=== PATIENT | female | born 1975 | race Caucasian/White ===

== ENCOUNTER 2024-05-20 00:02 | Emergency (ER) | payer SELFPAY ==
--- NOTE | ~2024-05-20 | XR_ITS ---
EXAMINATION: XR chest 1V portable DATE: 05/20/2024 04:48 INDICATION: Cough and shortness of breath TECHNIQUE: frontal view of the chest was obtained. COMPARISON: None FINDINGS: The lungs are clear with no focal airspace opacities, pulmonary edema, pleural effusion or pneumothor ax. The cardiomediastinal silhouette is normal. Moderate thoracic spondylosis. IMPRESSION: 1. No acute cardiopulmonary disease. Reviewed, dictated and finalized at location A. MACIST ASSISTANT
--- OUTSIDE RECORDS SUMMARY | 2024-05-20 00:05 | XMS_ITS ---
Author Organization [facility] inic Address [id number] [place] [address] [place] [id number] Care Team Providers Care Supervisor Tank House Name Role Phone GAB SOUZA Primary Care Provider [phone] REASON FOR VISIT med issues MEDICATIONS Medication SIG (Take, Route, Frequency, Duration) Notes Start Date End Date Status amLODIPine Besylate 5 MG Take 1 tablet b y mouth once daily for 30 days Active Doxepin HCl 75 MG 1 tablet at bedtime Orally Once a day for 30 days Active Atorvastatin Calcium 80 MG 1 tablet Oral ly Once a day for 30 day(s) Active Encounters Encounter Location Date Provider Diagnosis [facility] [address] [facility] [address] [place] [id number] 03/04/2023 GAB SOUZA Medication refill Z76.0 ASSESSMENTS Encounter Date Diagnosis Assessment Notes Treatment Notes Treatment Clinical Notes 03/04/2023 Medication refill (ICD-10 - Z76.0) PLAN OF TREATMENT Medication Medication Name Sig Start Date Stop Date Notes amLODIPine Besylate 5 MG Take 1 tablet b y mouth once daily for 30 days Doxepin HCl 75 MG 1 tablet at bedtime Orally Once a day for 30 days Atorvastatin Calcium 80 MG 1 tablet Oral ly Once a day for 30 day(s)
--- OUTSIDE RECORDS SUMMARY | 2024-05-20 00:06 | XMS_ITS ---
Author Organization [facility] inic Address [address] [facility] [address] [place], [place] [phone] Care Team Providers Care Prism Measurer Name Role Phone GAB SOUZA Primary Care Provider Alberta Salguero Unavailable [phone] REASON FOR VISIT 1 month f/u Encounters Encounter Location Date Provider Diagnosis [facility] [address] [facility] [address] [place], [place] [phone] 04/01/2023 Alberta Salguero PLAN OF TREATMENT No Information
--- OUTSIDE RECORDS SUMMARY | 2024-05-20 00:06 | XMS_ITS ---
Author Organization [facility] inic Address [address] [facility] [address] [place], [place] [phone] Care Team Providers Care Water Safety Teacher Name Role Phone GAB SOUZA Primary Care Provider Merly Arvizu [phone] REASON FOR VISIT Preparation for 04/01/2023 follow-up appointment Encounters Encounter Location Date Provider Diagnosis [facility] [address] [facility] [address] [place], [place] [phone] 03/30/2023 Merly Arvizu PLAN OF TREATMENT No Information
--- OUTSIDE RECORDS SUMMARY | 2024-05-20 00:06 | XMS_ITS | Referral Summary ---
Author Organization [facility] Address [address] [facility] [place] [address] Care Team Providers Care Unemployment Specialist Name Role Phone Rachael Banda Primary Care Provider [phone] Rachael Banda Unavailable Source Comments [facility],non-owned Affiliates and Associated Physician Practices is amultiple site organization consisting of ambulatory clinics and hospital sitesin [place], [place], [place] and [place]. This disclosure is being madepursuant to the Care Everywhere program and may not contain all information available regarding this patient. Last updated 17.[facility] Allergies Active Allergy Reactions Criticality Noted Date Comments Prednisone Unknown 08/10/2017 Medications * Be aware that medications may not be up to date on this document. Alwaysverify current medications with the patient. Medication Sig Dispensed Refills Start Date End Date Status cyclobenzaprine (FLEXERIL) 10 MG tablet 04/05/2017 A ctive cetirizine (ALL DAY ALLERGY) 10 MG tablet 02/24/2017 Act robert FLUoxetine (PROZAC) 20 MG capsule 04/01/2017 Active montelukast (SINGULAIR) 10 MG tablet 04/19/2017 Active gabapentin (NEURONTIN) 300 MG capsule 04/01/2017 Active OXCARBAZEPINE PO Active clonazePAM (KLONOPIN) 0.5 MG tablet Take 0.5 mg by mouth 2 times daily Active TRUEPLUS LANCETS 30G MISC 10/31/2018 Active amLODIPine (NORVASC) 5 MG tablet 10/31/2018 Active cloNIDine (CATAPRES) 0.1 MG tablet Take 0.1 mg by mouth 02/13/2019 Active lithium CR (ESKALITH CR) 450 MG tablet 05/24/2019 Active Active Problems No known active problems Social History Tobacco Use Types Packs/Day Years Used Date Smoking Tobacco: Never Smokeless Tobacco: Never Sex and Gender Information Value Date Recorded Sex Assigned at Not on file Gender Identity Not on file Sexual Orientation Not on file Last Filed Vital Signs Vital Sign Reading Time Taken Comments Blood Pressure - - Pulse - - Temperature - - Respiratory Rate - - Oxygen Saturation - - Inhaled Oxygen Concentration - - Weight 92.1 kg (203 lb) 12/27/2019 1:54 PM CDT Height 165.1 cm (5' 5 ) 12/27/2019 1:54 PM CDT Body Mass Index 33.78 12/27/2019 1:54 PM CDT Plan of Treatment Not on file Advance Directives Documents on File Type Date Recorded Patient Biometrics Consultant Expl anation Adv Directive/Living Will/POA 06/07/2019 11:34 AM [facility] Care Teams Unemployment Specialist Relationship Specialty Start Date End Date Rachael Banda PA [address] [place] [address] PCP - General 09/02/18 Rachael Banda PA [address] [place] [phone] 09/02/18
--- OUTSIDE RECORDS SUMMARY | 2024-05-20 00:06 | XMS_ITS | Patient Health Summary ---
Author Organization [facility] Address [address] [facility] [place] [address] Care Team Providers Care Magnetic Tape Winder Name Role Phone Rachael Banda Primary Care Provider [phone] Rachael Banda Unavailable Note from [facility],non-owned Affiliates and Associated Physician Practices is amultiple site organization consisting of ambulatory clinics and hospital sitesin [place], [place], [place] and [place]. This disclosure is being madepursuant to the Care Everywhere program and may not contain all information available regarding this patient. Last updated 17.[facility] Allergies * Prednisone(Unknown) Medications * Be aware that medications may not be up to date on this document. Alwaysverify current medications with the patient. * cyclobenzaprine (FLEXERIL) 10 MG tablet(Started 04/05/2017) * cetirizine (ALL DAY ALLERGY) 10 MG tablet(Started 02/24/2017) * FLUoxetine (PROZAC) 20 MG capsule(Started 04/01/2017) * montelukast (SINGULAIR) 10 MG tablet(Started 04/19/2017) * gabapentin (NEURONTIN) 300 MG capsule(Started 04/01/2017) * OXCARBAZEPINE PO * clonazePAM (KLONOPIN) 0.5 MG tablet Take 0.5 mg by mouth 2 times daily * TRUEPLUS LANCETS 30G MISC(Started 10/31/2018) * amLODIPine (NORVASC) 5 MG tablet(Started 10/31/2018) * cloNIDine (CATAPRES) 0.1 MG tablet(Started 02/13/2019) Take 0.1 mg by mouth * lithium CR (ESKALITH CR) 450 MG tablet(Started 05/24/2019) Active Problems No known active problems Social [...] Mass Index 33.78 12/27/2019 1:54 PM CDT Procedures * XR SPINE ENTIRE 2 OR 3VW(Performed 06/05/2019) Performed for Chronic midline low back pain with bilateral sciatica * XR LUMBAR SPINE 2 OR 3VW(Performed 04/27/2017) Results * XR SPINE ENTIRE 2 OR 3VW (06/05/2019 1:08 PM CDT) Anatomical Region Laterality Modality Spine Radiographic Yola ging 06/05/2019 1:45 PM CDT Impressions 06/05/2019 1:48 PM CDT IMPRESSION: Instrumented spinal fusion at L4-5. This report was electronically signed by DANDRE ROJAS MD on 06/05/2019 1:48 PM . Narrative 06/05/2019 1:48 PM CDT Exam: XR SPINE ENTIRE 2 view History: M54.41: Chronic midline low back pain with bilateral sciatica M54.42: Chronic midline low back pain with bilateral sciatica G89.29: Chronic midline low back pain with bilateral sciatica Comparison: None. Findings: Instrumented spinal fusion is present at L4-5 with posterior rods and screws. Instrumentation is intact. There is generally mild multilevel degenerative disc and joint disease with greater disc space narrowing at L5-S1 where it is moderate to severe. On the AP view there is mild thoracolumbar curvature of less than 10 degrees. Procedure Note Dandre Rojas MD - 06/05/2019 Exam: XR SPINE ENTIRE 2 view History: M54.41: Chronic midline low back pain with bilateral sciatica M54.42: Chronic midline low back pain with bilateral sciatica G89.29: Chronic midline low back pain with bilateral sciatica Comparison: None. Findings: Instrumented spinal fusion is present at L4-5 with posterior rods and screws. Instrumentation is intact. There is generally mild multilevel degenerative disc and joint disease with greater disc space narrowing at L5-S1 where it is moderate to severe. On the AP view there is mild thoracolumbar curvature of less than 10 degrees. IMPRESSION: Instrumented spinal fusion at L4-5. This report was electronically signed by DANDRE ROJAS MD on06/05/2019 1:48 PM . Jewel Proctor MD DIAGNOSTIC IMAGING O RDERABLES * XR LUMBAR SPINE 2 OR 3VW (04/27/2017 2:21 PM GAS WELDER APPRENTICE) Anatomical Region Laterality Modality Spine Other Impressions 04/27/2017 2:36 PM GAS WELDER APPRENTICE IMPRESSION: Instrumented spinal fusion at L5-S1. This report was electronically signed by DANDRE ROJAS MD on 04/27/2017 2:36 PM . Narrative 04/27/2017 2:36 PM GAS WELDER APPRENTICE Exam: XR SPINE LUMBAR 2 view History: chronic pain Comparison: None. Findings: Instrumented posterior spinal fusion is present at L5-S1 with posterior vertical rods and pedicle screws. No fracture or subluxation is seen. There is moderate degenerative disc disease at L5-S1 and mild degenerative disc disease at the other levels. There is facet osteoarthritis at L5-S1. Procedure Note Dandre Rojas MD - 06/30/2017 Exam: XR SPINE LUMBAR 2 view History: chronic pain Comparison: None. Findings: Instrumented posterior spinal fusion is present at L5-S1 with posteriorvertical rods and pedicle screws. No fracture or subluxation is seen.There is moderate degenerative disc disease at L5-S1 and mild degenerativedisc disease at the other levels. There is facet osteoarthritis at L5-S1. IMPRESSION IMPRESSION: Instrumented spinal fusion at L5-S1. This report was electronically signed by DANDRE ROJAS MD on 04/27/20172:36 PM . Nancy Darden PA-C DIAGNOSTIC IMAG ING ORDERABLES Care Teams Magnetic Tape Winder Relationship Specialty Start Date End Date Rachael Banda PA [address] [place] [address] PCP - General 09/02/18 Rachael Banda PA [address] [place] [address] 09/02/18
--- OUTSIDE RECORDS SUMMARY | 2024-05-20 00:06 | XMS_ITS | Clinical Summary ---
Author Organization [facility] Address [address] [facility] [address] Care Team Providers Care Association Executive Name Role Phone Rachael Banda Primary Care Provider [phone] Rachael Banda Unavailable Source Comments [facility],non-owned Affiliates and Associated Physician Practices is amultiple site organization consisting of ambulatory clinics and hospital sitesin [place], [place], [place] and [place]. This disclosure is being madepursuant to the Care Everywhere program and may not contain all information available regarding this patient. Last updated 17.[facility] Allergies Active Allergy Reactions Criticality Noted [...] 12/27/2019 1:54 PM CDT Plan of Treatment Health Maintenance Due Date Last Done Comments COLOGUARD (AGES 45-75) - COL ON CA SCREENING 1977 COLON MONITORING 1977 COLONOSCOPY - COLON CA SCREENING 1977 CT COLONOGRAPHY - COLON CA SCREENING 1977 Colorectal Cancer Screening 1977 FIT - COLON CA SCREENING 1977 FLEX SIG - COLON CA SCREENING 1977 LIPID TESTING 1977 MAMMOGRAM 1977 PAP SMEAR 1977 HIV SCREENING 1992 HEPATITIS C SCREENING 11/04/1995 DTAP/TDAP/TD VACCINES (1 - Tdap) 1996 HEPATITIS B VACCINE (1 of 3 - 19+ 3-dose series) 1996 SCREENING FOR DIABETES 11/17/2018 COVID-19 VACCINE ( - 2023-2 5 season) 2023 INFLUENZA VACCINE (#1) 2023 DEPRESSION SCREENING 03/29/2024 ZOSTER VACCINE (1 of 2) 11/09/2027 HIB VACCINE Aged Out No longer eligi ble based on patient's age to complete this topic HPV VACCINE Aged Out No longer eligi ble based on patient's age to complete this topic MENINGOCOCCAL (Group B) VACCINE Aged Out No longer eligible based on patient's age to complete this topic MENINGOCOCCAL VACCINE Aged Out No jeb gisel eligible based on patient's age to complete this topic PNEUMOCOCCAL VACCINE Aged Out No long er eligible based on patient's age to complete this topic Advance Directives Documents on File Type Date Recorded Patient Customer Service Voice Expl anation Adv Directive/Living Will/POA 06/07/2019 11:34 AM [facility] Care Teams Association Executive Relationship Specialty Start Date End Date Rachael Banda PA [address] [place] [phone] PCP - General 09/02/18 Rachael Banda PA [address] [place] [address] 09/02/18
--- OUTSIDE RECORDS SUMMARY | 2024-05-20 00:06 | XMS_ITS ---
Author Organization [facility] Address [address] [facility] [place] [address] Care Team Providers Care Lodging House Keeper Name Role Phone JASON NIX, EHAB Primary Care Provider Unavailabl NUNU Dweitt Unavailable [phone] LUANN ROBIN Unavailable [phone] Encounters Encounter Location Date Provider Diagnosis [facility] [address] [address] 01/15/2023 LUANN ROBIN PLAN OF TREATMENT No Information
[2024-05-20 00:07] VITALS: BP 145/95; PULSE 124; RESP 20; TEMP 36.7; O2SAT 97
--- OUTSIDE RECORDS SUMMARY | 2024-05-20 00:07 | XMS_ITS | Patient Health Record ---
Author Organization [facility] in[facility] Address [address] [facility] [address] [place], [place] [address] Care Team Providers Care Smoke Inspector Name Role Phone GAB SOUZA Primary Care Provider ALLERGIES No Known Allergies REASON FOR REFERRAL No Information MEDICATIONS Medication SIG (Take, Route, Frequency, Duration) Notes Start Date End Date Status amLODIPine Besylate 5 MG Take 1 tablet b y mouth once daily for 30 days Active hydrOXYzine Pamoate 25 MG 1 capsule Oral ly three times a day for itching Active Doxepin HCl 75 MG 1 tablet at bedtime Orally Once a day for 30 days Active Zofran ODT 4 MG 1 tablet on the tongue and allow to dissolve Orally Once a day for 30 day(s) Active busPIRone HCl 15 MG 1 tablet Oral Twice a day Active buPROPion HCl ER (XL) 300 MG Oral for 30 Active Atorvastatin Calcium 80 MG 1 tablet Oral ly Once a day for 30 day(s) Active Cyclobenzaprine HCl 10 MG 1 tablet at be dtime as needed Orally Once a day for 30 day(s) Not-Taking ALPRAZolam 0.25 MG 1 tablet Orally Twic e a day Not-Taking Methocarbamol 500 MG 1 tablet Oral Four times a day as needed Active Cetirizine HCl 10 MG 1 tablet Orally Onc e a day for 30 day(s) Not-Taking traZODone HCl 50 MG 1 tablet at bedtime Oral Once a day Not-Taking cloNIDine HCl 0.1 MG 1 tablet Orally Onc e a day for 30 day(s) Not-Taking OXcarbazepine 150 MG 1 tablet Orally Twi ce a day Active ARIPiprazole 10 MG 1 tablet Orally Once a day for 30 day(s) Active Montelukast Sodium 10 MG 1 tablet Orally Once a day for 30 day(s) Not-Taking Benztropine Mesylate 1 MG 1 tablet Orall y Once a day for 30 day(s) Active Meloxicam 15 MG 1 tablet Orally Once a day for 30 day(s) Not-Taking Gabapentin 600 MG 1 tablet Orally Once a day for 30 day(s) Active FLUoxetine HCl 20 MG 1 capsule Orally On ce a day for 30 day(s) Not-Taking Robaxin 500 MG 1.5 tablets Orally every 4 hrs for 30 day(s) Active SOCIAL HISTORY Tobacco Use: Social History Observation Description Date Details (start date - stop date) Never Smoker NA - NA Sex Assigned At : Social History Observation Description Sex Assigned At Unknown Tobacco Use/Smoking Question Answer Notes Are you a nonsmoker Additional Findings: Tobacco Non-User Aggressive non-smoker Tobacco use other than smoking: Question Answer Notes Are you an other tobacco user? Yes V ape PROBLEMS Problem Type ICD Code Onset Dates Problem Status W/U Status Risk SNOMED Code Notes Problem Essential (primary) hypertension (I10) Active confirmed 31168949 Problem Mood disorder (F39) Active confirmed 86704776 Problem Depression with anxiety (F41.8) Active confirmed 995812803 Problem Bipolar affective disorder, remission status unspecified (F31.9) Active confirmed 13542984 Problem Muscle spasm (M62.838) Active confirmed 56606909 Problem Thyroid nodule (E04.1) Active confirmed Thyroid nodule (620526216) Problem Seasonal allergies (J30.2) Active confirmed 785732680 Problem Chronic insomnia (F51.04) Active confirmed 364623585 Problem Borderline type 2 diabetes mellitus (R73.03) Active confirmed 554403364 Problem Low back pain, unspecified (M54.50) Active confirmed 601736084 PLAN OF TREATMENT Pending Test Test Name Order Date CBC and Plt w Diff 04/22/2022 CMP 04/22/2022 Folic Acid Level 04/22/2022 Hga1c 04/22/2022 Lipid Panel w Direct LDL. 04/22/2022 Magnesium Level 04/22/2022 Microalbumin Urine Random 04/22/2022 TSH 04/22/2022 Vitamin B12 Level 04/22/2022 Vitamin D 25 Hydroxy Level 04/22/2022 US Thyroid 03/03/2023 Insurance Providers Payer Name Payer Address Payer Phone Subscriber Number Group Number Insured Name Patient Relationship to Insured Coverage Start Date Coverage End Date [facility] [address] [address] [place] [address] [phone] [id number] Molly Keene Self - patient is the insured MEDICAL (GENERAL) HISTORY Medical History History ICD Code Biopoloar Depression Hypertension Surgical History Surgery Date(Month/Year) Tubal 1999 Back Lower Lumbar 2004
--- OUTSIDE RECORDS SUMMARY | 2024-05-20 00:07 | XMS_ITS ---
Author Organization [facility] Address [address] [facility] [place] [address] Care Team Providers Care Balling Head Tender Name Role Phone JASON NIX, EHAB Primary Care Provider Unavailabl e NUNU GOMEZ Unavailable [phone] ISIAH SMILEY Unavailable [phone] Encounters Encounter Location Date Provider Diagnosis [facility] [address] [place] [address] 01/29/2023 ISIAH SMILEY PLAN OF TREATMENT No Information
--- OUTSIDE RECORDS SUMMARY | 2024-05-20 00:07 | XMS_ITS | Patient Health Record ---
Author Organization [facility] Address [address] [facility] [place] [address] Care Team Providers Care It Help Desk Technician Name Role Phone JASON NIX, EHAB Primary Care Provider Unavailabl NUNU Dewitt Unavailable [phone] REASON FOR REFERRAL No Information PLAN OF TREATMENT No Information Insurance Providers Payer Name Payer Address Payer Phone Subscriber Number Group Number Insured Name Patient Relationship to Insured Coverage Start Date Coverage End Date [facility] [address] [address] [place] [phone] [id number] Horacio Keene Self - patient is the insured
[2024-05-20 04:30] VITALS: O2SAT 98
[2024-05-20 05:02] VITALS: BP 140/89; PULSE 103; RESP 17; O2SAT 97
[2024-05-20 05:17] LABS: Strep Group A RT-PCR NOT DETECTED (Negative)
[2024-05-20 05:29] LABS: Influenza A QL RT-PCR Positive (Negative); Influenza B QL RT-PCR Negative (Negative); RSV RNA, RT-PCR Negative (Negative); SARS-CoV-2 RNA PCR Negative (Negative)
--- NOTE | 2024-05-20 05:57 | ED.GENADULT ---
HPI - General Adult General Chief complaint: Upper Respiratory Infection Stated complaint: Cough, ST, weak Time Seen by Provider: 05/20/24 05:44 History of Present Illness HPI narrative: Patient is a 48-year-old female who presents to the emergency department this evening complaining of flu-like symptoms for the past 5 days. Patient states that I just feel so awful. Complaining of a sore throat, a productive cough, generalized weakness, body aches. Denies any sick contacts at home or any exposure to sick contacts. Denies any additional symptoms or concerns at this time. Related Data Allergies Allergy/AdvReac Type Severity Reaction Status Date / Time acetaminophen (From Vicodin) AdvReac Intermediate Other Verified 05/20/24 00:10 hydrocodone (From Vicodin) AdvReac Intermediate Other Verified 05/20/24 00:10 prednisone AdvReac Intermediate Other Verified 05/20/24 00:10 Review of Systems Review of Systems: All systems are reviewed and are negative unless stated otherwise in the HPI. Exam Narrative: General: Alert, awake, afebrile, in no acute distress. HEENT: PERRL, no rhinorrhea, no post nasal drip, oropharynx clear. Neck: Trachea midline, no JVD, no lymphadenopathy. Cardiovascular: Tachycardic with regular rhythm, no murmurs, rubs or gallops, no peripheral edema. Respiratory: Clear to auscultation bilaterally, no tachypnea, no wheezing, no rhonchi, no rubs, no respiratory distress. Abdomen: Soft, nontender, nondistended, no rebound, no guarding, no peritoneal signs. Musculoskeletal: No joint swelling or deformity, normal muscle tone. Skin: No rashes or petechia, no signs of infection. Psychiatric: Alert and oriented, normal behavior and judgment for situation. Neurological: Alert and oriented to person, place, and time. Follows all commands. No focal deficits, speech is clear and fluent. Course Vital Signs Vital signs: Vital Signs Temperature 98.0 F 05/20/24 00:07 Pulse Rate 124 H 05/20/24 00:07 Respiratory Rate 20 05/20/24 00:07 Blood Pressure 145/95 H 05/20/24 00:07 Pulse Oximetry 97 05/20/24 00:07 Oxygen Delivery Room Air 05/20/24 00:07 Temperature 98.0 F 05/20/24 00:07 Pulse Rate 103 H 05/20/24 05:02 Respiratory Rate 17 05/20/24 05:02 Blood Pressure 140/89 05/20/24 05:02 Pulse Oximetry 97 05/20/24 05:02 Oxygen Delivery Room Air 05/20/24 04:30 Medical Decision Making MDM Narrative Medical decision making narrative: The patient was evaluated by myself in the emergency department. History is obtained from patient who is an independent historian and physical exam was performed. External medical records were reviewed at this time. Viral swabs were obtained and noted to be positive for influenza A. Patient was administered 200 mg of oral Bentyl made this time to help with her cough. Imaging studies obtained included CXR which was independently interpreted by me revealing no acute cardiopulmonary process, which is pending final radiology interpretation. Differential diagnosis considerations include acute viral syndrome including COVID/RSV/influenza, infectious process such as pneumonia. Comorbidities impacting this visit include none. I have evaluated and discussed social determinants of health with the patient that could potentially impact subsequent diagnosis and treatment plans. On repeat assessment of the patient, reevaluation revealed that the patient is doing well and is in no acute distress. Patient symptoms have remained stable since she arrived to our emergency department. Repeat vital signs were all reviewed and noted to be stable. Differential diagnosis and treatment plan were discussed with the patient at bedside. Patient agrees with discussion and after shared medical decision making agrees with discharge. All questions were answered to the patient's satisfaction. Patient will follow up with her PCP in 3-5 days. A script for Tessalon Perles was sent to patient's pharmacy to use as needed for cough. Patient was provided with strict return precautions and instructed to return to the emergency department if any new or worsening symptoms develop. The patient was discharged in stable condition. Vital Signs Vital Signs: Vital Signs Temperature 98.0 F 05/20/24 00:07 Pulse Rate 124 H 05/20/24 00:07 Respiratory Rate 20 05/20/24 00:07 Blood Pressure 145/95 H 05/20/24 00:07 Pulse Oximetry 97 05/20/24 00:07 Oxygen Delivery Room Air 05/20/24 00:07 Temperature 98.0 F 05/20/24 00:07 Pulse Rate 103 H 05/20/24 05:02 Respiratory Rate 17 05/20/24 05:02 Blood Pressure 140/89 05/20/24 05:02 Pulse Oximetry 97 05/20/24 05:02 Oxygen Delivery Room Air 05/20/24 04:30 Lab Data Labs: Lab Results 05/20/24 Range/Units 04:47 Influenza A (RT-PCR) Positive A (Negative) Influenza B (RT-PCR) Negative (Negative) RSV (RT-PCR) Negative (Negative) SARS-CoV-2 RNA (RT-PCR) Negative (Negative) Group A Strep (PCR) Not detected (Negative) Discharge Plan Discharge Clinical Impression: Influenza Patient Disposition: Home, Self-Care Condition: Improved Instructions: Antibiotic Form, Influenza (ED) Additional Instructions: Please follow-up with your family doctor within the next 3-5 days. Return to the emergency department if any new or worsening symptoms develop. Continue using [id number] medications to help with your symptoms, use Tylenol and or ibuprofen alternating between the 2 for fevers or body aches. Maintain your oral hydration by drinking lots of fluids. Use the prescribed Tessalon Perles as needed for cough. Patient Language: Cook Islander Prescriptions: New benzonatate 200 mg capsule 200 mg PO TID PRN (Reason: cough) Qty: 30 0RF Follow-up/Referrals: PHYSICIAN,MITER GRINDER OPERATOR [Primary Care Provider] - Randall Solis MD [Physician] - 3 Days Time of Disposition: 05:50
--- OUTSIDE RECORDS SUMMARY | 2024-05-20 05:57 | XMS_ITS | Clinical Summary ---
Author Organization [facility] Address [address] [place] [place] [address] Care Team Providers Care Children'S Program Coordinator Name Role Phone Rachael Banda Primary Care Provider [phone] Rachael Banda Unavailable Source Comments [facility],non-owned Affiliates and Associated Physician Practices is amultiple site organization consisting of ambulatory clinics and hospital sitesin [place], [place] and [place]. This disclosure is being madepursuant to the Care Everywhere program and may not contain all information available regarding this patient. Last updated 17.[facility] Allergies Active Allergy Reactions Criticality Noted Date [...] Documents on File Type Date Recorded Patient Tank Wagon Operator Expl anation Adv Directive/Living Will/POA 06/07/2019 11:34 AM [facility] Care Teams Children'S Program Coordinator Relationship Specialty Start Date End Date Rachael Banda PA [address] [place] [phone] PCP - General 09/02/18 Rachael Banda PA [address] [place] [address] 09/02/18
--- OUTSIDE RECORDS SUMMARY | 2024-05-20 05:57 | XMS_ITS | Patient Health Summary ---
Author Organization [facility] Address [address] [facility] [place] [address] Care Team Providers Care Zinc Plate Cutter Name Role Phone Rachael Banda Primary Care Provider [phone] Rachael Banda Unavailable Note from [facility],non-owned Affiliates and Associated Physician Practices is amultiple site organization consisting of ambulatory clinics and hospital sitesin [place], [place], [place] and [place]. This disclosure is being madepursuant to the Care Everywhere program and may not contain all information available regarding this patient. Last updated 17.[facility] Allergies * Prednisone(Unknown) Medications * Be aware [...] SPINE 2 OR 3VW (04/27/2017 2:21 PM RUBBER CHEMIST) Anatomical Region Laterality Modality Spine Other Impressions 04/27/2017 2:36 PM RUBBER CHEMIST IMPRESSION: Instrumented spinal fusion at L5-S1. This report was electronically signed by DANDRE ROJAS MD on 04/27/2017 2:36 PM . Narrative 04/27/2017 2:36 PM RUBBER CHEMIST Exam: XR SPINE LUMBAR 2 view History: [...] PA-C DIAGNOSTIC IMAG ING ORDERABLES Care Teams Zinc Plate Cutter Relationship Specialty Start Date End Date Rachael Banda PA [address] [place] [address] PCP - General 09/02/18 Rachael Banda PA [address] [place] [address] 09/02/18
--- OUTSIDE RECORDS SUMMARY | 2024-05-20 05:57 | XMS_ITS | Referral Summary ---
Author Organization [facility] Address [address] [facility] [place] [address] Care Team Providers Care Red Hat Engineer Name Role Phone Rachael Banda Primary Care Provider [phone] Rachael Banda Unavailable Source Comments [facility],non-owned Affiliates and Associated Physician Practices is amultiple site organization consisting of ambulatory clinics and hospital sitesin [place], [place], [place] and [place]. This disclosure is being madepursuant to the Care Everywhere program and may not contain all information available regarding this patient. Last updated 17.[facility] Allergies Active Allergy Reactions Criticality Noted Date [...] Documents on File Type Date Recorded Patient Wheelchair Van Operator First Responder Expl anation Adv Directive/Living Will/POA 06/07/2019 11:34 AM [facility] Care Teams Red Hat Engineer Relationship Specialty Start Date End Date Rachael Banda PA [address] [place] [address] PCP - General 09/02/18 Rachael Banda PA [address] [place] [address] 09/02/18
[2024-05-20 06:01] VITALS: BP 160/100; PULSE 115; RESP 20; O2SAT 98
[2024-05-20] MEDS: BENZONATATE 100 MG CAPSULE 200 MG PO (06:48)
== END 2024-05-20 06:51 | disposition home or self-care (01) ==
LOC: ANHED 05:55
PROVIDERS: Emergency Provider Emergency Medicine
DX: J10.1 Influenza due to other identified influenza virus with other respiratory manifestations (principal); Z20.822 Contact with and (suspected) exposure to COVID-19
CPT/HCPCS: 71045; 87637; 87651; 99283; A9270

== ENCOUNTER 2024-06-14 13:12 | Emergency (ER) | payer SELFPAY ==
[2024-06-14 13:27] VITALS: BP 122/66; PULSE 92; RESP 16; TEMP 36.6; O2SAT 98
--- NOTE | 2024-06-14 13:30 | ED.FEMALEGU ---
HPI - Female Genitourinary General Chief complaint: Vaginal Bleeding <DONNY Liriano Last Filed: 06/14/24 13:32> Stated complaint: VAGINAL BLEEDING <DONNY Liriano Last Filed: 06/14/24 13:32> Time Seen by Provider: 06/14/24 13:31 <DONNY Liriano Last Filed: 06/14/24 13:32> Focused HPI: Patient is a 48-year-old female who presents the ED with report of vaginal bleeding. Reports she has been having persistent vaginal bleeding for the last 1 month. Has been feeling increasingly weak and fatigued over the last couple of days. Denies significant dizziness or lightheadedness. Has been passing blood clots up to a half dollar in size. Denies significant abdominal pain. Does complain of headache. Denies urinary complaints. Denies fevers. Does not currently have an OBGYN. GENERAL: Well-appearing, well-nourished, and in no acute distress. HEAD: Normocephalic, atraumatic. CHEST: Clear to auscultation. ?No respiratory distress. HEART: Regular rate and rhythm.? NEURO: ?Alert and oriented x3. Patient screened in triage and initial orders placed.? ?Additional care and disposition to be based upon?diagnostic testing and treatment. <Ebony Luis PA-C - Last Filed: 06/14/24 13:32> Source: patient <DONNY Liriano Last Filed: 06/14/24 13:32> Mode of arrival: ambulatory <DONNY Liriano Last Filed: 06/14/24 13:32> Limitations: no limitations <DONNY Liriano Last Filed: 06/14/24 13:32> Related Data Allergies/Adverse reactions: Allergies Allergy/AdvReac Type Severity Reaction Status Date / Time acetaminophen (From Vicodin) AdvReac Intermediate Other Verified 05/20/24 00:10 hydrocodone (From Vicodin) AdvReac Intermediate Other Verified 05/20/24 00:10 prednisone AdvReac Intermediate Other Verified 05/20/24 00:10 <Ebony Luis PA-C - Last Filed: 06/14/24 13:32> Review of Systems Review of Systems: All systems reviewed & are unremarkable except as noted in HPI and below <Rachel Cheema PA-C - Last Filed: 06/15/24 00:12> [facility] Past Medical History Medical History: Medical History (Updated 06/15/24 @ 00:10 by Rachel Cheema PA-C) History of diabetes mellitus <Ebony Luis PA-C - Last Filed: 06/14/24 13:32> Social History Social History: Social History (Updated 06/14/24 @ 22:18 by Rachel Cheema PA-C) Substance use: never <Ebony Luis PA-C - Last Filed: 06/14/24 13:32> Exam Narrative: GENERAL: Well-appearing, well-nourished, and in no acute distress. HEAD: Normocephalic, atraumatic. EYES: EOMI. CHEST: Clear to auscultation. No respiratory distress. No wheezes rales or rhonchi HEART: Regular rate and rhythm. No murmur heard. Normal peripheral pulses. ABDOMEN: Soft, nontender, nondistended, normal active bowel sounds. EXTREMITIES: Normal range of motion. No edema. SKIN: Warm, dry, no rash. NEURO: No focal deficits. Alert and oriented x3. PSYCH: Normal mood and affect PELVIC: Small amount dark red blood in the vaginal vault, otherwise normal <Rachel Cheema PA-C - Last Filed: 06/15/24 00:12> Course Vital Signs Vital signs: Vital Signs Temperature 97.9 F 06/14/24 13:27 Pulse Rate 92 06/14/24 13:27 Respiratory Rate 16 06/14/24 13:27 Blood Pressure 122/66 06/14/24 13:27 Pulse Oximetry 98 06/14/24 13:27 Temperature 96.8 F L 06/14/24 18:44 Pulse Rate 94 06/14/24 22:23 Respiratory Rate 17 06/14/24 22:23 Blood Pressure 128/71 06/14/24 22:23 Pulse Oximetry 98 06/14/24 22:23 <Ebony Luis PA-C - Last Filed: 06/14/24 13:32> Vital Signs Temperature 97.9 F 06/14/24 13:27 Pulse Rate 92 06/14/24 13:27 Respiratory Rate 16 06/14/24 13:27 Blood Pressure 122/66 06/14/24 13:27 Pulse Oximetry 98 06/14/24 13:27 Temperature 96.8 F L 06/14/24 18:44 Pulse Rate 94 06/14/24 22:23 Respiratory Rate 17 06/14/24 22:23 Blood Pressure 128/71 06/14/24 22:23 Pulse Oximetry 98 06/14/24 22:23 <DNONY Vaughn Last Filed: 06/15/24 00:12> MDM - Female Genitourinary MDM Narrative Medical decision making narrative: MSE by UMM in triage. <Ebony Luis PA-C - Last Filed: 06/14/24 13:32> MSE by UMM in triage. Patient presents emergency department for abnormal uterine bleeding. She does not currently have a ticket speculator. Her vitals are stable. Hemoglobin is 11.9. No concerning amount of bleeding noted on exam. test is negative. Patient instructed to have follow-up with gynecology for further evaluation. She was given warnings to return the ER <Rachel Cheema PA-C - Last Filed: 06/15/24 00:12> Differential Diagnosis Differential diagnosis: Likely dysmenorrhea and other (Dysfunctional uterine bleeding, anemia) <DONNY Vaughn Last Filed: 06/15/24 00:12> Lab Data Attestation: I reviewed the patient's lab results. <Rachel Cheema PA-C - Last Filed: 06/15/24 00:12> Result diagrams: 06/14/24 13:52 06/14/24 13:54 <DONNY Liriano Last Filed: 06/14/24 13:32> Labs: Lab Results 06/14/24 06/14/24 Range/Units 13:52 13:54 WBC 8.1 (4.5-10.0) K/mm3 RBC 4.37 (4.2-5.4) M/mm3 Hgb 11.9 L (12.0-15.0) g/dL Hct 36.2 L (37.0-47.0) % MCV 82.8 (80-100) fl MCH 27.2 (26-34) pg MCHC 32.9 (32-36) g/dl RDW 13.4 (11.5-14.5) % Plt Count 384 H (150-375) k/mm3 MPV 8.3 (7.4-10.4) fl Immature Gran % (Auto) 0.2 (0-0.5) % Neut % (Auto) 72.0 (45.5-73.1) % Lymph % (Auto) 22.4 (18.3-44.2) % [place] % (Auto) 3.6 (2.6-8.5) % Eos % (Auto) 1.6 (0-4.4) % Baso % (Auto) 0.2 (0.2-1.2) % Lymph # (Auto) 1.81 (0.9-3.2) K/mm3 [place] # (Auto) 0.3 (0.1-0.6) K/mm3 Eos # (Auto) 0.1 (0-0.3) K/mm3 Baso # (Auto) 0.0 (0.0-0.1) K/mm3 Abs Immat Gran (auto) 0.02 (0.00-0.031) K/mm3 Absolute Neuts (auto) 5.8 (1.3-6.7) K/mm3 Absolute Nucleated RBC 0.000 (0.0-0.012) K/mm3 Nucleated RBC % 0.0 (0.0-0.2) % PT 13.3 (11.1-14.7) Seconds INR 1.0 APTT 28.3 (22.3-36.8) Seconds Sodium 138 (137-145) mmol/L Potassium 4.3 (3.4-5.0) mmol/L Chloride 104 (98-107) mmol/L Carbon Dioxide 20 L (22-30) mmol/L Anion Gap 14 H (4-12) mmol/L BUN 14 (7-17) mg/dL Creatinine 0.59 L (0.7-1.0) mg/dL Estim Creat Clear Calc Not Reportable Estimated GFR > 60 (59 - ) Glucose 155 H (65-110) mg/dL Calcium 9.3 (8.4-10.2) mg/dL Total Bilirubin 0.3 (0.2-1.3) mg/dL AST 19 (14-36) U/L ALT 24 (6-35) U/L Alkaline Phosphatase 129 H (38-126) U/L Total Protein 8.0 (6.3-8.2) g/dL Albumin 4.2 (3.5-5.1) g/dL Urine Color Yellow (Yellow) Urine Appearance Clear (Clear) Urine pH 5.5 (5.0-9.0) Ur Specific [place] 1.030 (1.001-1.035) Urine Protein Negative (Negative) mg/dL Urine Glucose (UA) 2+ H (Negative) mg/dL Urine Ketones Trace H (Negative) mg/dL Ur Blood (Man) 2+ H (Negative) Urine Nitrate Negative (Negative) Urine Bilirubin Negative (Negative) Urine Urobilinogen 1.0 (<2.0) mg/dL Leukocyte Esterase Rfl Negative (Negative) LISS/UL Urine RBC 21-50 H (0-2) /hpf Urine WBC 0-5 (0-3) /hpf Ur Squamous Epith Cells None seen (Few) /hpf Urine Bacteria None seen /hpf Urine Casts 0-2 Urine Test Negative Blood Type O Positive Antibody Screen Negative <Ebony Luis PA-C - Last Filed: 06/14/24 13:32> Lab Results 06/14/24 06/14/24 Range/Units 13:52 13:54 WBC 8.1 (4.5-10.0) K/mm3 RBC 4.37 (4.2-5.4) M/mm3 Hgb 11.9 L (12.0-15.0) g/dL Hct 36.2 L (37.0-47.0) % MCV 82.8 (80-100) fl MCH 27.2 (26-34) pg MCHC 32.9 (32-36) g/dl RDW 13.4 (11.5-14.5) % Plt Count 384 H (150-375) k/mm3 MPV 8.3 (7.4-10.4) fl Immature Gran % (Auto) 0.2 (0-0.5) % Neut % (Auto) 72.0 (45.5-73.1) % Lymph % (Auto) 22.4 (18.3-44.2) % [place] % (Auto) 3.6 (2.6-8.5) % Eos % (Auto) 1.6 (0-4.4) % Baso % (Auto) 0.2 (0.2-1.2) % Lymph # (Auto) 1.81 (0.9-3.2) K/mm3 [place] # (Auto) 0.3 (0.1-0.6) K/mm3 Eos # (Auto) 0.1 (0-0.3) K/mm3 Baso # (Auto) 0.0 (0.0-0.1) K/mm3 Abs Immat Gran (auto) 0.02 (0.00-0.031) K/mm3 Absolute Neuts (auto) 5.8 (1.3-6.7) K/mm3 Absolute Nucleated RBC 0.000 (0.0-0.012) K/mm3 Nucleated RBC % 0.0 (0.0-0.2) % PT 13.3 (11.1-14.7) Seconds INR 1.0 APTT 28.3 (22.3-36.8) Seconds Sodium 138 (137-145) mmol/L Potassium 4.3 (3.4-5.0) mmol/L Chloride 104 (98-107) mmol/L Carbon Dioxide 20 L (22-30) mmol/L Anion Gap 14 H (4-12) mmol/L BUN 14 (7-17) mg/dL Creatinine 0.59 L (0.7-1.0) mg/dL Estim Creat Clear Calc Not Reportable Estimated GFR > 60 (59 - ) Glucose 155 H (65-110) mg/dL Calcium 9.3 (8.4-10.2) mg/dL Total Bilirubin 0.3 (0.2-1.3) mg/dL AST 19 (14-36) U/L ALT 24 (6-35) U/L Alkaline Phosphatase 129 H (38-126) U/L Total Protein 8.0 (6.3-8.2) g/dL Albumin 4.2 (3.5-5.1) g/dL Urine Color Yellow (Yellow) Urine Appearance Clear (Clear) Urine pH 5.5 (5.0-9.0) Ur Specific [place] 1.030 (1.001-1.035) Urine Protein Negative (Negative) mg/dL Urine Glucose (UA) 2+ H (Negative) mg/dL Urine Ketones Trace H (Negative) mg/dL Ur Blood (Man) 2+ H (Negative) Urine Nitrate Negative (Negative) Urine Bilirubin Negative (Negative) Urine Urobilinogen 1.0 (<2.0) mg/dL Leukocyte Esterase Rfl Negative (Negative) LISS/UL Urine RBC 21-50 H (0-2) /hpf Urine WBC 0-5 (0-3) /hpf Ur Squamous Epith Cells None seen (Few) /hpf Urine Bacteria None seen /hpf Urine Casts 0-2 Urine Test Negative Blood Type O Positive Antibody Screen Negative <Rachel Cheema PA-C - Last Filed: 06/15/24 00:12> Critical Care Time Critical Care Time Critical Care Time: No <Rachel Cheema PA-C - Last Filed: 06/15/24 00:12> Discharge Plan Discharge Clinical Impression: Dysfunctional uterine bleeding Anemia Qualifiers: Anemia type: unspecified type Qualified Code(s): D64.9 - Anemia, unspecified <Ebony Luis PA-C - Last Filed: 06/14/24 13:32> Patient Disposition: Home, Self-Care <DONNY Liriano Last Filed: 06/14/24 13:32> Condition: Stable <DONNY Liriano Last Filed: 06/14/24 13:32> Instructions: Abnormal (Dysfunctional) Uterine Bleeding (ED), Anemia (ED) <Ebony Luis PA-C - Last Filed: 06/14/24 13:32> Additional Instructions: Return to the ER if you experience fever, chest pain, shortness of breath, abdominal pain with nausea and vomiting, you are unable to keep down liquids or solids, you pass out, or any other symptoms that are concerning to you Follow up with gynecology for further evaluation of your abnormal cycles <DONNY Liriano Last Filed: 06/14/24 13:32> Patient Language: Divehi <Ebony Luis PA-C - Last Filed: 06/14/24 13:32> Prescriptions: No Action benzonatate 200 mg capsule 200 mg PO TID PRN (Reason: cough) Qty: 30 0RF <Ebony Luis PA-C - Last Filed: 06/14/24 13:32> Follow-up/Referrals: PHYSICIAN,WATER TAXI OPERATOR [Primary Care Provider] - Timothy Clarke MD [Physician] - <Ebony Luis PA-C - Last Filed: 06/14/24 13:32>
[2024-06-14 14:01] LABS: Basophils Percent Auto 0.2 % (0.2-1.2); Eosinophils Absolute Auto 0.1 K/mm3 (0-0.3); Eosinophils Percent Auto 1.6 % (0-4.4); Hematocrit 36.2 % (37.0-47.0); Hemoglobin 11.9 g/dL (12.0-15.0); Immature Granulocyte Absolute 0.02 K/mm3 (0.00-0.031); Immature Granulocyte Percent A 0.2 % (0-0.5); Lymphocytes Absolute Auto 1.81 K/mm3 (0.9-3.2); Lymphocytes Percent Auto 22.4 % (18.3-44.2); Mean Corpuscular HGB Conc 32.9 g/dl (32-36); Mean Corpuscular Hemoglobin 27.2 pg (26-34); Mean Corpuscular Volume 82.8 fl (80-100); Mean Platelet Volume 8.3 fl (7.4-10.4); Monocytes Absolute Auto 0.3 K/mm3 (0.1-0.6); Monocytes Percent Auto 3.6 % (2.6-8.5); Neutrophils Absolute Auto 5.8 K/mm3 (1.3-6.7); Platelet Count Result 384 k/mm3 (150-375); Red Blood Count 4.37 M/mm3 (4.2-5.4); Red Cell Distribution Width 13.4 % (11.5-14.5); White Blood Count 8.1 K/mm3 (4.5-10.0)
[2024-06-14 14:10] LABS: Add Urine Microscopic? YES; Appearance Urine Clear (Clear); Bacteria Urine None Seen /hpf; Bilirubin Urine Negative (Negative); Blood Urine 2+ (Negative); Color Urine Yellow (Yellow); Glucose Urine UA 2+ mg/dL (Negative); Ketones Urine Trace mg/dL (Negative); Leukocyte Esterase Ur Negative LEU/UL (Negative); Nitrate Urine Negative (Negative); Non Pathogenic Casts 0-2; Protein Urine Negative (Negative); RBC Urine 21-50 /hpf (0-2); Squamous Epithelial Cell Urine None Seen /hpf (Few); WBC Urine 0-5 /hpf (0-3); pH Urine 5.5 (5.0-9.0)
[2024-06-14 14:16] LABS: Prothrombin Time 13.3 Seconds (11.1-14.7)
[2024-06-14 14:17] LABS: Partial Thromboplastin Time 28.3 Seconds (22.3-36.8)
[2024-06-14 14:24] LABS: Alanine Aminotransferase 24 U/L (6-35); Albumin Level 4.2 g/dL (3.5-5.1); Alkaline Phosphatase 129 U/L (38-126); Anion Gap 14 mmol/L (4-12); Aspartate Amino Transferase 19 U/L (14-36); Bilirubin,Total 0.3 mg/dL (0.2-1.3); Blood Urea Nitrogen 14 mg/dL (7-17); Calcium 9.3 mg/dL (8.4-10.2); Carbon Dioxide 20 mmol/L (22-30); Chloride 104 mmol/L (98-107); Estimated Glomerular Filt Rate > 60; Glucose 155 mg/dL (65-110); Potassium 4.3 mmol/L (3.4-5.0); Sodium 138 mmol/L (137-145)
--- OUTSIDE RECORDS SUMMARY | 2024-06-14 14:38 | XMS_ITS ---
Author Organization [facility] Address [address] [facility] [place] [address] Care Team Providers Care Curatorial Specialist Name Role Phone JASON NIX, EHAB Primary Care Provider Unavailabl e NUNU GOMEZ Unavailable [phone] ISIAH SMILEY Unavailable [phone] Encounters Encounter Location Date Provider Diagnosis [facility] [address] [place] [address] 01/29/2023 ISIAH SMILEY PLAN OF TREATMENT No Information
--- OUTSIDE RECORDS SUMMARY | 2024-06-14 14:38 | XMS_ITS ---
Author Organization [facility] Address [address] [place], [place] [phone] Care Team Providers Care Aircraft Detail Draftsperson Name Role Phone GAB SOUZA Primary Care Provider [phone] Alberta Salguero Unavailable [phone] REASON FOR VISIT 1 month f/u Encounters Encounter Location Date Provider Diagnosis [facility] [address] [place], [place] [id number] 04/01/2023 Alberta Salguero PLAN OF TREATMENT No Information
--- OUTSIDE RECORDS SUMMARY | 2024-06-14 14:38 | XMS_ITS | Clinical Summary ---
Author Organization [facility] Address [address] [place] [place] [address] Care Team Providers Care Fruit Harvest Machine Operator Name Role Phone Rachael Banda Primary Care Provider [phone] Rachael Banda Unavailable Source Comments [facility],non-owned Affiliates and Associated Physician Practices is amultiple site organization consisting of ambulatory clinics and hospital sitesin [place], [place], [place] and [place]. This disclosure is being madepursuant to the Care Everywhere program and may not contain all information available regarding this patient. Last updated 17.[facility] Allergies Active Allergy Reactions Criticality Noted [...] to complete this topic MENINGOCOCCAL (Group B) VACC INE SHARED DECISION-MAKING Aged Out No longer eligibl e based on patient's age to complete this topic MENINGOCOCCAL GROUPS A/C/Y/W VACCINE Aged Out No longer eligible b ased on patient's age to complete this topic PNEUMOCOCCAL VACCINE Aged Out No long er eligible based on patient's age to complete this topic Advance Directives Documents on File Type Date Recorded Patient Cupola Liner Expl anation Adv Directive/Living Will/POA 06/07/2019 11:34 AM [facility] Care Teams Fruit Harvest Machine Operator Relationship Specialty Start Date End Date Rachael Banda PA [address] [place] [address] PCP - General 09/02/18 Rachael Banda PA [address] [place] [address] 09/02/18
--- OUTSIDE RECORDS SUMMARY | 2024-06-14 14:38 | XMS_ITS | Patient Health Record ---
Author Organization [facility] Address [address] [facility] [place] [address] Care Team Providers Care Outdoor Studies Professor Name Role Phone JASON NIX, EHAB Primary Care Provider Unavailabl NUNU Dewitt Unavailable [phone] REASON FOR REFERRAL No Information PLAN OF TREATMENT No Information Insurance Providers Payer Name Payer Address Payer Phone Subscriber Number Group Number Insured Name Patient Relationship to Insured Coverage Start Date Coverage End Date [facility] [address] [address] [place] [phone] [id number] Horacio Keene Self - patient is the insured
--- OUTSIDE RECORDS SUMMARY | 2024-06-14 14:38 | XMS_ITS ---
Author Organization [facility] Address [address] [facility] [place] [address] Care Team Providers Care Race Car Driver Name Role Phone JASON NIX, EHAB Primary Care Provider Unavailabl NUNU Dewitt Unavailable [phone] LUANN ROBIN Unavailable [phone] Encounters Encounter Location Date Provider Diagnosis [facility] [address] [address] 01/15/2023 LUANN ROBIN PLAN OF TREATMENT No Information
--- OUTSIDE RECORDS SUMMARY | 2024-06-14 14:38 | XMS_ITS ---
Author Organization [facility] Address [address] [place], [place] [phone] Care Team Providers Care Stud Setter Name Role Phone GAB SOUZA Primary Care Provider [phone] Merly Arvizu [phone] REASON FOR VISIT Preparation for 04/01/2023 follow-up appointment Encounters Encounter Location Date Provider Diagnosis [facility] [address] [place], [place] [phone] 03/30/2023 Merly Arvizu PLAN OF TREATMENT No Information
--- OUTSIDE RECORDS SUMMARY | 2024-06-14 14:38 | XMS_ITS | Patient Health Record ---
Author Organization [employer] [facility] Address [address] [place], [place] [phone] Care Team Providers Care Press Bucker Name Role Phone GAB SOUZA Primary Care [...] Problem Essential (primary) hypertension (I10) Active confirmed 74987363 Problem Mood disorder (F39) Active confirmed 91623681 Problem Depression with anxiety (F41.8) Active confirmed 020486468 Problem Bipolar affective disorder, remission status unspecified (F31.9) Active confirmed 95066567 Problem Muscle spasm (M62.838) Active confirmed 17127305 Problem Thyroid nodule (E04.1) Active confirmed Thyroid nodule (890602843) Problem Seasonal allergies (J30.2) Active confirmed 176009661 Problem Chronic insomnia (F51.04) Active confirmed 251250744 Problem Borderline type 2 diabetes mellitus (R73.03) Active confirmed 612928033 Problem Low back pain, unspecified (M54.50) Active confirmed 940985225 PLAN OF TREATMENT Pending Test Test Name [...] Insured Coverage Start Date Coverage End Date [facility] [address] [address] [place] [address] [id number] Molly Keene Self - patient is the insured MEDICAL (GENERAL) HISTORY Medical History History ICD Code Biopoloar Depression Hypertension Surgical History Surgery Date(Month/Year) Tubal 1999 Back Lower Lumbar 2004
--- OUTSIDE RECORDS SUMMARY | 2024-06-14 14:38 | XMS_ITS ---
Author Organization [facility] Address [address] [place] [address] [place] [phone] Care Team Providers Care Pump Installer Name Role Phone GAB SOUZA Primary Care Provider [phone] REASON FOR VISIT med issues MEDICATIONS Medication [...] Active Encounters Encounter Location Date Provider Diagnosis [facility] [address] [place] [id number] 03/04/2023 GAB SOUZA Medication refill Z76.0 ASSESSMENTS [...]
[2024-06-14 18:44] VITALS: BP 138/70; PULSE 94; RESP 18; TEMP 36; O2SAT 97
[2024-06-14 22:23] VITALS: BP 128/71; PULSE 94; RESP 17; O2SAT 98
--- OUTSIDE RECORDS SUMMARY | 2024-06-14 22:25 | XMS_ITS | Clinical Summary ---
Author Organization [facility] Address [address] [place] [address] Care Team Providers Care Wood Web Weaving Machine Operator Name Role Phone Rachael Banda Primary Care Provider [phone] Rachael Banda Unavailable Source Comments [facility],non-owned Affiliates and Associated Physician Practices is amultiple site organization consisting of ambulatory clinics and hospital sitesin [place], [place], [place] and [place]. This disclosure is being madepursuant to the Care Everywhere program and may not contain all information available regarding this patient. Last updated 17.[facility] Allergies Active Allergy Reactions Criticality Noted [...] Documents on File Type Date Recorded Patient Emg Technician Expl anation Adv Directive/Living Will/POA 06/07/2019 11:34 AM [facility] Care Teams Wood Web Weaving Machine Operator Relationship Specialty Start Date End Date Rachael Banda PA [address] [place] [id number] PCP - General 09/02/18 Rachael Banda PA [address] [place] [id number] 09/02/18
[2024-06-14 23:06] LABS: Pregnancy On Board Control Positive; Urine Pregnancy Test Negative
== END 2024-06-15 00:50 | disposition home or self-care (01) ==
PROVIDERS: Physician Assistant; Emergency Provider Physician Assistant
DX: D64.9 Anemia, unspecified (principal); N93.8 Other specified abnormal uterine and vaginal bleeding; E11.9 Type 2 diabetes mellitus without complications
CPT/HCPCS: 36415; 80053; 81001; 81025; 85025; 85610; 85730; 86850; 86900; 86901; 99284